=== PATIENT | female | born 1945 | race Caucasian/White ===

== ENCOUNTER 2017-08-10 11:52 | Emergency (ER) | payer OTHER ==
[~2017-08-10] VITALS: Ht 162.6 cm; Wt 81.2 kg
[2017-08-10 13:17] LABS: Basophils # (auto) 0 uL; Basophils % (auto) 0.4 % (0.0-2.0); Eosinophils # (auto) 0 uL; Eosinophils % (auto) 0.2 % (0.0-7.0); Hematocrit 45.8 % (36.0-46.0); Hemoglobin 15.5 g/dL (12.2-16.2); Lymphocytes # (auto) 0.6 uL; Lymphocytes % (auto) 5.4 % (10.0-50.0); Mean Corpuscular Hemoglobin 32.3 pg (28.0-32.0); Mean Corpuscular Hgb Conc. 33.9 g/dL (32.0-36.0); Mean Corpuscular Volume 95.3 fL (80.0-100.0); Mean Platelet Volume 8.7 fL (6.9-10.8); Monocytes # (auto) 0.4 uL; Monocytes % (auto) 3.8 % (0.0-12.0); Neutrophils # (auto) 9.4 uL; Neutrophils % (auto) 90.2 % (37.0-80.0); Nucleated Red Blood Cells % 0.4 %; Platelet Count (auto) 231 10^3/uL (140-450); Red Cell Distribution Width 15.6 % (11.8-14.3); White Blood Cell 10.4 10^3/uL (4.4-10.8)
[2017-08-10 13:33] LABS: Albumin 3.9 g/dL (3.4-5.0); Anion Gap 9 (5-15); Aspartate Aminotransferase 14 U/L (15-37); Blood Urea Nitrogen 26 mg/dL (7-18); Calcium 10.1 mg/dL (8.5-10.1); Carbon Dioxide 28 mmol/L (21-32); Chloride 102 mmol/L (98-107); GFR African American 52 mL/min; GFR Non-African American 43 mL/min; Glucose 126 mg/dL (74-106); Potassium 3.3 mmol/L (3.5-5.1); Sodium 139 mmol/L (136-145)
[2017-08-10 13:37] LABS: Alkaline Phosphatase 79 U/L (45-117); Bilirubin, Total 0.6 mg/dL (0.2-1.0)
[2017-08-10 17:09] VITALS: BP 131/63
== END 2017-08-10 17:11 | disposition home or self-care (01) ==
LOC: ER 11:52
DX: L03.115 Cellulitis of right lower limb (principal); R10.13 Epigastric pain; R11.2 Nausea with vomiting, unspecified; R51 Headache; J44.9 Chronic obstructive pulmonary disease, unspecified; I10 Essential (primary) hypertension; Z88.0 Allergy status to penicillin
CPT/HCPCS: 36415; 70450; 73620; 80053; 84484; 85025; 93005

== ENCOUNTER 2018-10-30 09:26 | Inpatient (IN) | payer OTHER | END 2018-10-31 13:45 | disposition home or self-care (01) | LOC: ER 09:26 → TELE 16:41 → TELE-WESTW 20:13 | DX: K92.1 Melena (principal); N17.9 Acute kidney failure, unspecified; F32.1 Major depressive disorder, single episode, moderate; K92.0 Hematemesis; I50.9 Heart failure, unspecified; I11.0 Hypertensive heart disease with heart failure; J44.9 Chronic obstructive pulmonary disease, unspecified; I77.819 Aortic ectasia, unspecified site; E87.6 Hypokalemia; E78.5 Hyperlipidemia, unspecified; Z98.61 Coronary angioplasty status; I25.10 Atherosclerotic heart disease of native coronary artery without angina pectoris; D64.9 Anemia, unspecified ==